=== PATIENT | male | born 1965 | race Caucasian/White ===

== ENCOUNTER 2017-02-13 17:43 | Emergency (ER) | payer MEDICAID ==
--- NOTE | 2017-02-13 18:19 | ED Physician Chart ---
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 History of Present Illness:: This 52-year-old right-handed male was washing dishes when a glass broke and he cut the distal portion of the right middle finger. Laceration is approximately 3 cm in length and clean. Sensation is intact to touch and pinprick distally. Tendon function is normal within the finger. On exploration no foreign bodies were found and no tendons were identified. The laceration was more to the ulnar lateral aspect of the finger then over the dorsal surface. Allergies:: Allergies Allergy/AdvReac Type Severity Reaction Status Date / Time No Known Allergies Allergy Verified 12/22/15 11:03 Family Medical History - Family Member Mother Ethnicity: Non- Living Status: Hx Family Cancer: Yes Hx Family Hypertension: Yes Physical Exam - Physical Examination General/Constitutional: Awake, Well-developed, well-nourished, Alert, No distress, GCS 15, Non-toxic appearing, Ambulatory Other Extremities comments:: There is a 3 cm linear partial flap laceration involving the distal right long finger. The laceration clean and no foreign bodies were done affiant by either visual or palpation. Distal sensation was intact to light touch and pin and tendon function was normal. Assessment - Assessment General Assessment: Procedure: The right long finger was prepped with Betadine and irrigated with normal saline. The seizure was obtained using 1% lidocaine without epinephrine injected into the skin margins. Margins were reapproximated with 3 sutures of 3 -0 Prolene and 2 additional sutures of 4-0 Prolene. Patient tolerated the procedure well. he will return to the emergency department for any signs of infection and for a wound check in 2 days. He can return in 10-12 days for suture removal. ED Septic Shock - . Is Septic Shock (SBP<90, OR Lactate>4 mmol\L) present?: No Reassessment (Disposition) - Reassessment Reassessment Condition:: Improved - Diagnosis Diagnosis:: SIMPLE 3 CM LACERATION OF THE DISTAL RIGHT LONG FINGER - Aftercare/Follow up Instructions Aftercare/Follow-Up Instructions:: Counseled pt regarding lab results/diagnosis & need follow up - Patient Disposition Discharge/Transfer:: Home
== END 2017-02-13 19:57 | disposition home or self-care (01) ==
LOC: ER 17:43
DX: S61.212A Laceration without foreign body of right middle finger without damage to nail, initial encounter (principal); W25.XXXA Contact with sharp glass, initial encounter; Y93.G1 Activity, food preparation and clean up; Y92.89 Other specified places as the place of occurrence of the external cause; Y99.8 Other external cause status
CPT/HCPCS: 12002; Z7502; Z7610